=== PATIENT | female | born 1985 ===

== ENCOUNTER 2017-06-14 10:20 | Day surgery (SDC) | payer OTHER ==
[2017-06-14 11:28] VITALS: O2SAT 100
[2017-06-14] MEDS ORDERED: Lactated Ringer's 1,000 ML IV ONE (11:41)
--- NOTE | 2017-06-14 12:14 | CP.SDSHP ---
Same Day Surgery H & P - History Proposed Procedure: EGD Pre-Op Diagnosis: abdominal pain - Allergies Allergies: Allergies No Known Allergies Allergy (Verified 06/14/17 11:10) - Physical Exam General Appearance: NAD Vital Signs: Vital Signs 06/14/17 10:40 Temperature 98.1 F Pulse Rate 81 Respiratory 20 Rate Blood Pressure 112/69 O2 Sat by Pulse 100 Oximetry Mental Status: Alert & Oriented x3 Neuro: WNL Heart: WNL Lungs: WNL GI: WNL - {Optional Preform as Required} Abdomen: WNL - Impression Pt. Evaluated Today:Candidate for Anesthesia & Procedure: Yes - Date & Time Date: 06/14/17 Time: 12:14 Short Stay Discharge - Short Stay Discharge Admitting Diagnosis/Reason for Visit: CALCULUS OF BILE DUCT Disposition: HOME/ ROUTINE
[2017-06-14] MEDS ORDERED: Propofol 10 mg/ml Inj (20 ML) ONE (12:38)
[2017-06-14 13:19] VITALS: TEMP 96.9
[2017-06-14 14:30] VITALS: BP 108/65; PULSE 69; RESP 13
== END 2017-06-14 14:28 | disposition home or self-care (01) ==
LOC: C.ENDO 10:20
PROVIDERS: ATTEND Internal Medicine Gastroenterology
DX: R10.13 Epigastric pain (principal); K29.70 Gastritis, unspecified, without bleeding; B96.81 Helicobacter pylori [H. pylori] as the cause of diseases classified elsewhere
CPT/HCPCS: 43239; 84703; 88305; J2704; J7120